=== PATIENT | female | born 1995 | race Caucasian/White ===

== ENCOUNTER 2016-09-17 19:44 | Inpatient (IN) | payer MEDICAID ==
[~2016-09-17] VITALS: Ht 157.5 cm; Wt 69.5 kg
--- NOTE | ~2016-09-17 | OR ---
PATIENT'S NAME: JOSE [facility]S [facility] AGE: 21 Y [address] ROOM: [facility] [place], [place] [address] LOCATION: GOBS ADMIT DATE: 09/18/2016 OR/Procedure Report DISCHARGE DATE: FAMILY PHYSICIAN: NIKHIL WORKMAN MD ATTENDING PHYSICIAN: Dax Samaniego SURGEON: Nikhil Workman MD CAR DELIVERER: None. DATE OF PROCEDURE: 09/19/2015 PREOPERATIVE DIAGNOSIS: 35 and 3/7th weeks' gestation, intrauterine , who presented in active labor along with GBS unknown status. POSTOPERATIVE DIAGNOSIS: 35 and 3/7th weeks' gestation, intrauterine , who presented in active labor along with GBS unknown status with delivery of viable female at 0938 hours weighing 5 pounds 12 ounces with 7 at 1 minute and 8 at 5 minutes. PROCEDURE: Spontaneous vaginal delivery. ANESTHESIA: Epidural. ESTIMATED BLOOD LOSS: 100 mL. INDICATIONS: This 21-year-old, G3, P2, presented at 35 and 2/7th gestation by LMP with EDC of 10/17/2016, complaining of regular uterine contractions. course was complicated by unknown GBS status. lab data included O-positive blood type with negative antibody screen. Rubella immune. VDRL nonreactive. Hep B surface antigen negative. HIV nonreactive. GBS unknown. She presented around 2000 hours on the day prior to delivery complaining of contractions. At that time, she was 3 to 4 cm, 50% effaced, and -2. heart rate was reactive, reassuring. The patient did receive a fluid bolus as well as a dose of Brethine that did not stop her contractions. She continued to progress until she eventually stalled out around 6 cm the following day. Around 0740 hours on the day of delivery, artificial rupture of membranes was performed with return of clear fluid. At that time, her cervix was 6 cm, 75% effaced, and vertex was at -1. The epidural had been placed for analgesia prior. She progressed to complete by around 0900 hours and was allowed to push. This brought the infant's vertex to the perineum. PROCEDURE IN DETAIL: The patient was noted to be complete, pushing, was placed in dorsal lithotomy position. Prepped and draped in the usual sterile fashion for vaginal delivery. The patient was asked to push, and the head was delivered spontaneously in the OA position over an intact perineum. Nuchal cord was checked for and none was noted. The anterior shoulder was subsequently easily delivered and the posterior shoulder followed. The PATIENT'S NAME: JOSE CARDENAS [facility] AGE: 21 Y [address] ROOM: [address] [address] LOCATION: [facility] ADMIT DATE: 09/18/2016 OR/Procedure Report DISCHARGE DATE: FAMILY PHYSICIAN: NIKHIL WORKMAN MD ATTENDING PHYSICIAN: Dax Samaniego remainder of the was easily delivered and the infant was noted to have a spontaneous cry and spontaneous movement all 4 extremities. The cord was clamped x2 and cut and noted to have 2 arteries and 1 vein. The was passed to the warmer where the NICU nurse and health officer were in attendance. Cord blood was then obtained. Placenta was delivered intact by Crede and the uterus was not explored. This occurred at 0940 hours. 20 units of Pitocin was placed in IV bag to firm the uterus. Examination of the cervix and vaginal vault did not reveal any significant lacerations though there were 2 periurethral skin tears that were not bleeding. The patient tolerated the procedure well and was recovered in Labor and Delivery. The was monitored closely by the NICU staff as well as Dr. Chandler Augustine, health officer. The infant had good scores, but was ultimately taken to the NICU for close monitoring. All needle and sponge counts were correct. NIKHIL WORKMAN MD BAB/modl /[id number] d: 09/18/16 1411 t: 10/07/162008, OPERATIVE SUMMARY
[~2016-09-17 19:44] MED LIST: ACETAMINOPHEN325 MG PO; APNO TOP; FEOSOL325 MG PO; FLAGYL500 MG PO; LANSINOH7 GM TOP; MOTRIN800 MG PO; PRENATAL 1+1)(P1 TAB PO; PROVENTIL OR V6.7 GM INH; SURFAK240 MG PO; TUCKS1 EACH TOP; TUMS200 MG PO; VISTARIL25 MG PO
[2016-09-17] MEDS ORDERED: PROAIR RESPICL90 MCG INH (21:45)
[2016-09-17 21:47] LABS: BILIRUBIN URINE NEGATIVE (NEGATIVE); BLOOD URINE NEGATIVE /UL (NEGATIVE); COLOR URINE YELLOW (YELLOW); GLUCOSE URINE NEGATIVE (NEGATIVE); KETONE URINE NEGATIVE (NEGATIVE); LEUKOCYTES URINE 500 /UL (NEGATIVE); NITRITE URINE NEGATIVE (NEGATIVE); PROTEIN URINE NEGATIVE (NEGATIVE); SPEC GRAVITY URINE 1.015 (1.003-1.035); TURBIDITY URINE CLEAR (CLEAR); UROBILINOGEN URINE NORMAL (NORMAL)
[2016-09-17 21:57] LABS: RBC URINE NEGATIVE #/HPF (NEGATIVE)
[2016-09-17 21:58] LABS: AMORPHOUS URINE 2+ (NEGATIVE); BACTERIA URINE MANY (NEGATIVE); MUCUS URINE 2+ (NEGATIVE)
[2016-09-17 22:03] LABS: BARBITURATE NEGATIVE (NEGATIVE); OPIATES NEGATIVE (NEGATIVE)
[2016-09-17 22:04] LABS: AMPHETAMINE NEGATIVE (NEGATIVE); COCAINE NEGATIVE (NEGATIVE)
[2016-09-17 22:09] LABS: BASOPHIL % 0.3 %; EOSINOPHIL # 0.1 K/uL (0.0-0.5); EOSINOPHIL % 1.3 %; HEMATOCRIT 33.6 % (33.0-46.0); HEMOGLOBIN 11.1 g/dL (11.0-15.0); IMMATURE GRANULOCYTE # 0.1 K/uL (0.0-0.3); IMMATURE GRANULOCYTE % 1.2 %; LYMPHOCYTE # 1.2 K/uL (0.8-4.0); LYMPHOCYTE % 12.9 %; MCV 93.9 fl (83.0-98.0); MONOCYTE # 0.6 K/uL (0.0-1.0); MONOCYTE % 6.3 %; MPV 10.1 fl (9.4-12.4); NEUTROPHIL # (ANC) 7.1 K/uL (1.8-7.8); NRBC % 0 /100WBC (0-0.00); PLATELET COUNT 176 K/uL (150-450); RBC 3.58 M/uL (3.50-5.00); RDW-CV 14.6 % (11.9-14.6); WBC 9.1 K/uL (4.0-11.0)
--- NOTE | 2016-09-18 05:15 | NUR ---
Pain ratin. Last pain med: Epidural Medicated at: 0040 Effective: Yes FHT: 140's, mod variability, accels Dilatation: 7 Effacement 80%: Station: -1 Significant event: Uc's started approx 1715 yesterday. 3cm's on admission. Progressed despite 1000mL bolus LR and Terbutaline 0.25mg subcut. Progressed to 5cm and got epidural. GBS collected but unknown. Penicillin prophylaxis. Next dose of Penicillin due at 0530. Membranes intact
--- NOTE | 2016-09-18 18:00 | NUR ---
09/18/16 1800: Mom in NICU freq. To start pumoing in nursery. VSS. Cook @ 1100.
[2016-09-19 04:17] LABS: BASOPHIL % 0.3 %; EOSINOPHIL # 0.2 K/uL (0.0-0.5); EOSINOPHIL % 1.8 %; HEMATOCRIT 34.2 % (33.0-46.0); HEMOGLOBIN 11.2 g/dL (11.0-15.0); IMMATURE GRANULOCYTE # 0.1 K/uL (0.0-0.3); IMMATURE GRANULOCYTE % 0.8 %; LYMPHOCYTE # 1.2 K/uL (0.8-4.0); LYMPHOCYTE % 13.1 %; MCH 30.7 pg (27.0-34.0); MCHC 32.7 gm/dL (32.0-36.5); MCV 93.7 fl (83.0-98.0); MONOCYTE # 0.8 K/uL (0.0-1.0); MONOCYTE % 8.5 %; MPV 9.8 fl (9.4-12.4); NEUTROPHIL # (ANC) 7.1 K/uL (1.8-7.8); NEUTROPHIL % 75.5 %; NRBC % 0 /100WBC (0-0.00); PLATELET COUNT 192 K/uL (150-450); RBC 3.65 M/uL (3.50-5.00); RDW-CV 14.9 % (11.9-14.6); WBC 9.4 K/uL (4.0-11.0)
--- NOTE | 2016-09-19 16:55 | NUR ---
Met with patient at bedside today. Introduced myself and the role of the CM department. Patient has a 4 yr old girl who lives with her dad and a 17 month old that lives with patient, but is with maternal grandma alot or in daycare. She states she uses [employer] [facility], [facility] She states this baby's father is in a OCC program until December, but he will be moving in with her when he completes the program. She states she has all the necessary items for baby. Baby is in the NICU right now due to being born at 35 weeks. 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 We reviewed the signs and sypmtoms to watch for and discussed who her support network will be. I porvided her with the handout on PPD. She appears to be very aware of the signs and symptoms to watch for and indicates her mom, sister, and the friend visiting right now are good supports to her. I also instructed her to contact Medicaid and notify them of baby's . I provided her with a list of community resources in [place] and voucher for baby supplies from the [facility]. I will continue to follow while baby is in the NICU. No other needs at this time.
--- NOTE | 2016-09-20 04:52 | NUR ---
VSS. FUNDUS FIRM, EVEN 2 DOWN. SMALL FLOW. PATIENT DENIES PASSING CLOTS. MOTRIN LAST AT 2251. PERCOCET LAST AT 0334. GOES TO NICU FREQUENTLY TO FEED BABY. PLANNING ON GOING HOME TODAY.
[2016-09-20] MEDS ORDERED: SURFAK240 MG PO (12:56)
[2016-09-20] MEDS ORDERED: APNO TOP (12:56)
[2016-09-20] MEDS ORDERED: PRENATAL 1+1)(P1 TAB PO (12:56)
[2016-09-20] MEDS ORDERED: MOTRIN800 MG PO (12:57)
[2016-09-20] MEDS ORDERED: PERCOCET 5-3251 EACH PO (12:59)
== END 2016-09-20 15:45 | disposition disaster alternative care site (69) | DRG 775 ==
LOC: GOBM 19:44 → GOBS 19:51 → GOBM 19:55 → GOBS 09-18 02:01
PROVIDERS: ADMIT Family Medicine
DX: O60.14X0 Preterm labor third trimester with preterm delivery third trimester, not applicable or unspecified (principal); J45.909 Unspecified asthma, uncomplicated; Z3A.35 35 weeks gestation of pregnancy; Z37.0 Single live birth
CPT/HCPCS: J2001; J2540; J2590; J3010; J3105; J7120